=== PATIENT | male | born 1990 | race Caucasian/White ===

== ENCOUNTER 2017-03-28 15:10 | Emergency (ER) | payer OTHER ==
[2017-03-28 16:29] LABS: #Basophils 0.1 thou/uL (0.0-0.2); #Eosinphils 0.2 thou/uL (0.0-0.7); #Lymphocytes 2.3 thou/uL (1.20-3.40); #Monocytes 0.5 thou/uL (0.11-0.59); #Neutrophils 4.2 thou/uL (1.40-6.50); %Basophils 1.4 % (0.0-1.0); %Eosinophils 2.2 % (0.0-10.0); %Lymphocytes 32.1 % (21.0-51.0); %Monocytes 7.2 % (0.0-10.0); Hematocrit 47.7 % (42.0-52.0); Mean Platelet Volume 9.4 fL (7.4-10.4); Red Blood Cell (RBC) Count 5.48 mill/uL (4.70-6.10); White Blood Cell (WBC) Count 7.3 thou/uL (4.8-10.8)
[2017-03-28 16:42] LABS: Lactic Acid - Sepsis 1.4 mmol/L (0.5-2.2)
[2017-03-28 16:45] LABS: Anion Gap 16 mmol/L (10-20); BUN (Urea Nitrogen) 19 mg/dL (8.9-20.6); Calc. Creatinine Clearance 0 mL/min (70-130); Calcium 9.4 mg/dL (7.8-10.44); Carbon Dioxide 20 mmol/L (22-29); Chloride 107 mmol/L (98-107); Estimated GFR-MDRD 77
[2017-03-28] MEDS ORDERED: Ketorolac Tromethamine 30 MG/ML VIAL ONE (16:55)
[2017-03-28 19:19] LABS: Bilirubin Negative (Negative); Blood, Urine Negative (Negative); Glucose, Urine (Dipstick) Negative (Negative); Ketone, Urine Negative (Negative); Nitrite Negative (Negative); Protein, Urine (Dipstick) Negative (Neg-Trace); Urobilinogen 0.2 mg/dL (0.2-1.0)
--- NOTE | 2017-03-28 19:26 | ULT ---
SCROTAL SONOGRAM WITH DUPLEX EVALUATION 03/28/17 HISTORY: Scrotal pain. FINDINGS: Each testicle is 4.6 cm in length and demonstrates good color and spectral doppler flow. Tiny cyst is associated with the left epididymal head. Venous structures within each side of the scrotum are engorged and become more prominent upon Valsalv a. IMPRESSION: 1. Small bilateral varicoceles. 2. No evidence of testicular mass or torsion. POS: [facility]
--- NOTE | 2017-03-28 19:40 | CT ---
CT ABDOMEN AND PELVIS WITH IV AND ORAL CONTRAST 03/28/17 HISTORY: Right lower quadrant pain. COMPARISON: 04/24/13. FINDINGS: The lungs bases are clear. The liver, spleen, kidneys, adrenal glands, and pancreas have a normal CT appearance. Nonenlarged lymph nodes throughout the mesentery are similar in appearance to the prior s tudy. Appendix is not well delineated. No inflammation or free fluid are apparent. Urinary bladder is unremarkable. IMPRESSION: No significant abnormalities are demonstrated. POS: [facility]
== END 2017-03-28 19:41 | disposition home or self-care (01) ==
LOC: SCSER 15:10
DX: I86.1 Scrotal varices (principal); K21.9 Gastro-esophageal reflux disease without esophagitis; J45.909 Unspecified asthma, uncomplicated; F41.9 Anxiety disorder, unspecified; Z79.899 Other long term (current) drug therapy
CPT/HCPCS: 36415; 74177; 76870; 80048; 81003; 83605; 85025; 87086; 93976; 96374; J1885